=== PATIENT | male | born 1990 | race Caucasian/White ===

== ENCOUNTER 2017-01-28 18:35 | Emergency (ER) | payer MEDICARE ==
[2017-01-28 21:36] LABS: APPEARANCE CLEAR (CLEAR); BILIRUBIN NEGATIVE (NEGATIVE); COLOR YELLOW (YELLOW); GLUCOSE 100 mg/dL (NEGATIVE); KETONE NEGATIVE (NEGATIVE); LEUKOCYTE ESTERASE NEGATIVE (NEGATIVE); NITRITE NEGATIVE (NEGATIVE); PROTEIN NEGATIVE (NEGATIVE); UROBILINOGEN NORMAL (NORMAL)
[2017-01-28 21:42] LABS: UDS - AMPHET NEGATIVE QUAL (NEGATIVE); UDS - BARB NEGATIVE QUAL (NEGATIVE); UDS - BENZO NEGATIVE QUAL (NEGATIVE); UDS - COCAINE NEGATIVE QUAL (NEGATIVE); UDS - METH NEGATIVE QUAL (NEGATIVE); UDS - OPIATE NEGATIVE QUAL (NEGATIVE); UDS - PCP NEGATIVE QUAL (NEGATIVE); UDS - THC POSITIVE QUAL (NEGATIVE)
[2017-01-28 21:49] LABS: CALC OSMOLALITY 281 mosm/kg (275-300); CALCIUM 9.2 mg/dL (8.5-10.1); CHLORIDE - SERUM 99 mmol/L (98-107); CREATININE - SERUM 0.8 mg/dL (0.6-1.3); POTASSIUM - SERUM 4.7 mmol/L (3.5-5.1); SODIUM 137 mmol/L (136-145); UREA NITROGEN 16 mg/dL (7-18); eGFR NON AFRICAN AMERICAN > 90 mL/min (90-120)
[2017-01-28 21:54] LABS: GLUCOSE 231 mg/dL (74-106)
== END 2017-01-28 22:10 | disposition home or self-care (01) ==
LOC: D.ER 18:35
PROVIDERS: Nurse Practitioner Acute Care
DX: F12.10 Cannabis abuse, uncomplicated (principal); R25.1 Tremor, unspecified; E10.9 Type 1 diabetes mellitus without complications; Z79.4 Long term (current) use of insulin

== ENCOUNTER → 2017-02-13 09:24 | Outpatient (CLI) | payer MEDICARE ==
[2017-02-13 09:59] LABS: UDS - AMPHET NEGATIVE QUAL (NEGATIVE); UDS - BARB NEGATIVE QUAL (NEGATIVE); UDS - BENZO NEGATIVE QUAL (NEGATIVE); UDS - COCAINE NEGATIVE QUAL (NEGATIVE); UDS - METH NEGATIVE QUAL (NEGATIVE); UDS - OPIATE NEGATIVE QUAL (NEGATIVE); UDS - PCP NEGATIVE QUAL (NEGATIVE); UDS - THC POSITIVE QUAL (NEGATIVE)
== END | disposition home or self-care (01) ==
LOC: D.LAB 09:24
PROVIDERS: Emergency Medicine
DX: F11.20 Opioid dependence, uncomplicated (principal)

== ENCOUNTER 2017-07-30 11:29 | Emergency (ER) | payer MEDICARE ==
[2017-07-30 12:01] LABS: APPEARANCE CLEAR (CLEAR); BILIRUBIN NEGATIVE (NEGATIVE); COLOR YELLOW (YELLOW); GLUCOSE 250 mg/dL (NEGATIVE); KETONE NEGATIVE (NEGATIVE); NITRITE NEGATIVE (NEGATIVE); PROTEIN NEGATIVE (NEGATIVE); SPECIFIC GRAVITY 1.005 (1.005-1.020); UROBILINOGEN NORMAL (NORMAL)
[2017-07-30 12:34] LABS: BASOPHILS 0.3 % (0-2); EOSINOPHILS 1.7 % (0-7); HEMATOCRIT 48.2 % (42.0-54.0); HEMOGLOBIN 17.2 g/dL (13.5-17.5); IMMATURE GRANULOCYTES 0.3 % (0-5); LYMPHOCYTES 21.7 % (15-50); MCH 33.1 pg (26.0-34.0); MCHC 35.7 g/dL (31.0-37.0); MCV 92.9 fL (80.0-100.0); MEAN PLATELET VOLUME 9.9 fL (7.4-10.4); MONOCYTES 9.7 % (2-11); NEUTROPHILS 66.3 % (40-80); PLATELET COUNT 269 10x3/uL (130-400); RBC 5.19 10x6/uL (4.20-6.10); RDW 13.1 % (11.5-14.5); WBC 7.9 10x3/uL (4.8-10.8)
[2017-07-30 12:46] LABS: ALKALINE PHOSPHATASE 92 U/L (46-116); ALT (SGPT) 126 U/L (10-68); AMYLASE - SERUM 43 U/L (25-115); BILIRUBIN - TOTAL 0.79 mg/dL (0.2-1.3); CALC OSMOLALITY 280 mosm/kg (275-300); CALCIUM 8.8 mg/dL (8.5-10.1); CHLORIDE - SERUM 101 mmol/L (98-107); CREATININE - SERUM 0.9 mg/dL (0.6-1.3); GLUCOSE 198 mg/dL (74-106); LIPASE 57 U/L (73-393); POTASSIUM - SERUM 4.7 mmol/L (3.5-5.1); SODIUM 137 mmol/L (136-145); UREA NITROGEN 14 mg/dL (7-18); eGFR NON AFRICAN AMERICAN > 90 mL/min (90-120)
== END 2017-07-30 15:18 | disposition home or self-care (01) ==
LOC: D.ER 11:29
PROVIDERS: Emergency Medicine
DX: K31.84 Gastroparesis (principal); R10.9 Unspecified abdominal pain; E10.9 Type 1 diabetes mellitus without complications; Z79.4 Long term (current) use of insulin; F12.90 Cannabis use, unspecified, uncomplicated

== ENCOUNTER 2019-01-25 05:36 | Emergency (ER) | payer MEDICARE ==
[~2019-01-25] VITALS: Ht 170.2 cm; Wt 68.2 kg
[2019-01-25 05:40] VITALS: Ht 170.2 cm; Wt 68.2 kg
[2019-01-25] MEDS ORDERED: LEVEMIR IN100 UNITS/ SC (05:41)
[2019-01-25] MEDS ORDERED: NOVOLOG100 UNIT/1 SC (05:41)
[2019-01-25] MEDS ORDERED: RANITIDINE HCL150 M1 PO (05:41)
[2019-01-25 06:34] LABS: ALBUMIN 4.2 g/dL (3.4-5.0); ALKALINE PHOSPHATASE 97 U/L (46-116); ALT (SGPT) 37 U/L (10-68); AMYLASE - SERUM 45 U/L (25-115); BILIRUBIN - TOTAL 0.64 mg/dL (0.2-1.3); CALC OSMOLALITY 282 mosm/kg (275-300); CALCIUM 8.7 mg/dL (8.5-10.1); CARBON DIOXIDE 29.2 mmol/L (21.0-32.0); CHLORIDE - SERUM 103 mmol/L (98-107); GLUCOSE 207 mg/dL (74-106); LIPASE 79 U/L (73-393); POTASSIUM - SERUM 4.5 mmol/L (3.5-5.1); PROTEIN - SERUM 7.2 g/dL (6.4-8.2); SODIUM 139 mmol/L (136-145); UREA NITROGEN 10 mg/dL (7-18); eGFR NON AFRICAN AMERICAN > 90 mL/min (90-120)
[2019-01-25] MEDS ORDERED: ZOFRAN ODT4 MG/UDTAB PO (06:54)
[2019-01-25] MEDS ORDERED: PROTONIX40 MG PO (06:54)
[2019-01-25 06:57] LABS: BASOPHILS 0.4 % (0-2); EOSINOPHILS 3.1 % (0-7); HEMATOCRIT 42.7 % (42.0-54.0); HEMOGLOBIN 15.8 g/dL (13.5-17.5); IMMATURE GRANULOCYTES 0.2 % (0-5); LYMPHOCYTES 41.3 % (15-50); MCH 32.4 pg (26.0-34.0); MCV 87.5 fL (80.0-100.0); MEAN PLATELET VOLUME 9.9 fL (7.4-10.4); MONOCYTES 9.4 % (2-11); NEUTROPHILS 45.6 % (40-80); PLATELET COUNT 239 10x3/uL (130-400); RBC 4.88 10x6/uL (4.20-6.10); RDW 12.6 % (11.5-14.5); WBC 5.1 10x3/uL (4.8-10.8)
[2019-01-25 07:07] VITALS: BP 107/55
== END 2019-01-25 07:07 | disposition home or self-care (01) ==
LOC: D.ER 05:36
PROVIDERS: Emergency Medicine
DX: K29.70 Gastritis, unspecified, without bleeding (principal); E10.9 Type 1 diabetes mellitus without complications; Z79.4 Long term (current) use of insulin

== ENCOUNTER 2019-03-24 06:08 | Emergency (ER) | payer MEDICARE ==
[~2019-03-24] VITALS: Ht 170.2 cm; Wt 68.2 kg
[~2019-03-24 06:08] MED LIST: LEVEMIR IN100 UNITS/ SC; NOVOLOG100 UNIT/1 SC; PROTONIX40 MG PO; RANITIDINE HCL150 M1 PO; ZOFRAN ODT4 MG/UDTAB PO
[2019-03-24 06:13] VITALS: Ht 170.2 cm; Wt 68.2 kg
[2019-03-24] MEDS ORDERED: SUBOXONE 2 MG-01 TAB SL (06:14)
[2019-03-24 06:35] LABS: BASOPHILS 0.3 % (0-2); HEMATOCRIT 48.7 % (42.0-54.0); HEMOGLOBIN 18.1 g/dL (13.5-17.5); IMMATURE GRANULOCYTES 0.2 % (0-5); LYMPHOCYTES 39.2 % (15-50); MCH 32.8 pg (26.0-34.0); MCHC 37.2 g/dL (31.0-37.0); MCV 88.2 fL (80.0-100.0); MEAN PLATELET VOLUME 9.8 fL (7.4-10.4); MONOCYTES 12.1 % (2-11); NEUTROPHILS 46.2 % (40-80); PLATELET COUNT 274 10x3/uL (130-400); RBC 5.52 10x6/uL (4.20-6.10); RDW 12.4 % (11.5-14.5); WBC 6.4 10x3/uL (4.8-10.8)
[2019-03-24 06:36] LABS: APPEARANCE CLEAR (CLEAR); BILIRUBIN NEGATIVE (NEGATIVE); COLOR YELLOW (YELLOW); GLUCOSE 50 mg/dL (NEGATIVE); KETONE NEGATIVE (NEGATIVE); NITRITE NEGATIVE (NEGATIVE); PROTEIN NEGATIVE (NEGATIVE); SPECIFIC GRAVITY 1.015 (1.005-1.020); UROBILINOGEN NORMAL (NORMAL)
[2019-03-24 06:50] LABS: ALBUMIN 4.9 g/dL (3.4-5.0); ALKALINE PHOSPHATASE 109 U/L (46-116); ALT (SGPT) 74 U/L (10-68); BILIRUBIN - TOTAL 0.87 mg/dL (0.2-1.3); CALCIUM 9.9 mg/dL (8.5-10.1); CARBON DIOXIDE 33.1 mmol/L (21.0-32.0); CHLORIDE - SERUM 103 mmol/L (98-107); POTASSIUM - SERUM 4.3 mmol/L (3.5-5.1); PROTEIN - SERUM 8.7 g/dL (6.4-8.2); SODIUM 143 mmol/L (136-145); UREA NITROGEN 17 mg/dL (7-18); eGFR NON AFRICAN AMERICAN > 90 mL/min (90-120)
[2019-03-24 06:54] LABS: AMYLASE - SERUM 53 U/L (25-115); LIPASE 75 U/L (73-393)
[2019-03-24 06:57] LABS: CALC OSMOLALITY 287 mosm/kg (275-300); GLUCOSE 121 mg/dL (74-106); TROPONIN-I < 0.017 ng/mL (0.000-0.060)
[2019-03-24] MEDS ORDERED: ZOFRAN ODT4 MG/UDTAB PO (07:20)
[2019-03-24 07:43] VITALS: BP 140/84
== END 2019-03-24 07:40 | disposition home or self-care (01) ==
LOC: D.ER 06:08
PROVIDERS: Family Medicine
DX: K29.00 Acute gastritis without bleeding (principal); R11.2 Nausea with vomiting, unspecified; E11.9 Type 2 diabetes mellitus without complications; K21.9 Gastro-esophageal reflux disease without esophagitis